=== PATIENT | male | born 1955 | race Caucasian/White ===

== ENCOUNTER 2021-01-23 09:31 | Outpatient (CLI) | payer MEDICARE, OTHER ==
--- NOTE | 2021-01-23 11:14 | CT ---
CT CHEST WITHOUT CONTRAST CLINICAL INDICATION: None follow-up for lung nodule. COMPARISON: None available at this time. FINDINGS: Aorta: Limited evaluation of vascular structures due to lack of intravenous contrast. Thoracic aorta is normal in caliber with vascular calcifications in the thoracic aorta. Lungs: A noncalcified right apical pulmonary nodule is seen measuring 5 mm with a subpleural pulmonar y nodule right lower lobe (image 101, series 3) also measuring 5 mm. There is a partially calcified pleural-based nodule involving the major fissure measuring 0.7 cm. A few tiny subcentimeter pleural b ased nodules are seen at the superior aspect left major fissure likely related to interfissural lymph nodes. Large airways are patent. Mediastinum: Lack of intravenous contrast limits sensitivity for evaluation of the mediastinal struct ures. However no enlarged lymph nodes are appreciated. Thyroid gland: Grossly normal nonenhanced CT appearance. Osseous structures: Slight retrolisthesis of L1 on L2. Minimal degenerative change are seen in the sp ine. No suspicious lytic or sclerotic osseous lesions are identified. Chest wall: No abnormality visualized. Upper abdomen: There are hypodense lesions in lateral segment left hepatic lobe largest measuring 1.8 cm each of which demonstrates fluid attenuation on this nonenhanced CT exam suggesting hepatic cysts. The more posteriorly located cyst was seen on an abdominal ultrasound in 2013. IMPRESSION: 1. Approximately 5 mm pulmonary nodules in the right lung apex and in a subpleural location right low er lobe. No prior studies are available for direct comparison. 2. Stable partially calcified pleural-based nodule right major fissure measuring 0.7 cm.
== END 2021-01-23 09:32 | disposition home or self-care (01) ==
LOC: BICCT 09:31
PROVIDERS: ATTEND Internal Medicine Critical Care Medicine
DX: R91.8 Other nonspecific abnormal finding of lung field (principal); J98.4 Other disorders of lung
CPT/HCPCS: 71250